=== PATIENT | female | born 1990 | race African-American/Black ===

== ENCOUNTER 2017-01-17 17:50 | Emergency (ER) | payer SELFPAY ==
[~2017-01-17] VITALS: Ht 165.1 cm; Wt 130.6 kg
[~2017-01-17 17:50] MED LIST: BENZ200C47 PO; ONDA4TAB10 SL
[2017-01-17 18:13] VITALS: BP 128/58
--- NOTE | 2017-01-17 18:58 | PHYS DOC ---
Past Medical History Past Medical History: Bronchitis, Depression, Other Additional Past Medical Histor: miscarriage jul 2014 Past Surgical History: Tonsillectomy Alcohol Use: Occasionally Drug Use: None Adult General Chief Complaint Chief Complaint: COUGH HPI HPI 26-year-old female presenting to the emergency department for cough and congestion and runny nose at home for the last week or 2. Location upper respiratory tract. Duration intermittent. She has been using the over-the- counter medications with minimal relief. Review of systems is negative for chest pain abdominal pain she denies confusion neck stiffness or meningismus. All other review of systems is negative unless otherwise noted in history of present illness. ED course: 26-year-old female presenting with cough and congestion over the past few days. I ordered a chest x-ray a urine test and ordered a nebulizer for the patient to help her with her cough. Unfortunately, for some unknown reason the patient became very angry and left. We would be happy to see her again if she were to come back. We could continue taking care of her. I think she is doing all right things by taking soho-bbv-wwzqsww medications for cough control at home. I would've liked to have gotten a chest x-ray to evaluate her for pneumonia however because the patient left I can no longer get a chest x-ray. The patient then eloped. She eloped prior to my ability to have a final discussion with the patient about return precautions. Review of Systems Review of Systems SEE ABOVE. Allergies Allergies Allergies Coded Allergies Type Severity Reaction Last Updated Verified No Known Drug Allergies 11/11/14 No Physical Exam Physical Exam Constitutional: Well developed, well nourished, no acute distress, non-toxic appearance. [] HENT: Normocephalic, atraumatic, bilateral external ears normal, oropharynx moist, no oral exudates, nose normal. [] Eyes: PERRLA, EOMI, conjunctiva normal, no discharge. [] Neck: Normal range of motion, no tenderness, supple, no stridor. [] Cardiovascular:Heart rate regular rhythm, no murmur [] Lungs & Thorax: Bilateral breath sounds clear to auscultation [] clear to auscultation bilaterally. Abdomen: Bowel sounds normal, soft, no tenderness, no masses, no pulsatile masses. [] Skin: Warm, dry, no erythema, no rash. [] Back: No tenderness, no CVA tenderness. [] Extremities: No tenderness, no cyanosis, no clubbing, ROM intact, no edema. [] Neurologic: Alert and oriented X 3, normal motor function, normal sensory function, no focal deficits noted. [] Psychologic: Affect normal, judgement normal, mood normal. [] Current Patient Data Vital Signs Vital Signs Date Time Temp Pulse Resp B/P (MAP) Pulse Ox O2 Delivery O2 Flow Rate FiO2 01/17/17 18:13 98.1 62 20 98 Room Air 98.1 EKG EKG [] Radiology/Procedures Radiology/Procedures [] Course & Med Decision Making Course & Med Decision Making Pertinent Labs and Imaging studies reviewed. (See chart for details) [] Dragon Disclaimer Dragon Disclaimer This electronic medical record was generated, in whole or in part, using a voice recognition dictation system. Departure Departure Impression: Primary Impression: Cough Additional Impressions: At high risk for elopement History of attempted elopement from health care facility Referrals: NO PCP (PCP) Problem Qualifiers ARCADIO PUENTE MD Jan 17, 2017 18:58
[2017-01-17] MEDS ORDERED: IPRATRPIUM/ALBUTEROL 0.5/2.5MG 3 ML NEBU. NEB ONE (19:00)
== END 2017-01-17 18:54 | disposition left against medical advice (07) ==
LOC: ER 17:50
DX: R05 Cough (principal); R09.81 Nasal congestion; R09.89 Other specified symptoms and signs involving the circulatory and respiratory systems; F32.9 Major depressive disorder, single episode, unspecified; Z53.21 Procedure and treatment not carried out due to patient leaving prior to being seen by health care provider
CPT/HCPCS: 81025; 99281; 99282

== ENCOUNTER 2018-05-23 12:25 | Emergency (ER) | payer SELFPAY ==
[~2018-05-23] VITALS: Ht 165.1 cm; Wt 108.9 kg
[2018-05-23 12:50] VITALS: BP 140/87
--- NOTE | 2018-05-23 13:53 | PHYS DOC ---
Past Medical History Past Medical History: Anxiety, Bipolar, Bronchitis, Depression, Other Additional Past Medical Histor: miscarriage jul 2014, PANIC DISORDER Past Surgical History: Tonsillectomy Alcohol Use: Occasionally Drug Use: None Adult General Chief Complaint Chief Complaint: HEADACHE HPI HPI 27-year-old female presents to ER with complaints of ongoing headache for the past week. Patient reports she experienced an anxiety attack approximately one week ago and the headache developed after that. Patient reports she has also had sinus pressure and photosensitivity. Patient reports she took Tylenol at 8 AM this morning and current pain is at 5-6/10. She reports she has been taking sinus congestion medication [id number] but came to the ER as she was wanting her pain to be "gone". Patient states she has felt warm but has not checked her temperature at home. Patient denies vision change. Patient denies urinary symptoms. Patient reports she has had regular appetite. Patient states her LMP was months ago but she has irregular menstrual cycles. Patient reports no concerns for as she has not been sexually active in the past 2 years. Patient denies any suicidal ideations and reports her anxiety has improved since one week ago. Review of Systems Review of Systems Constitutional: Reports feeling "warm" denies checking temperature. Reports regular appetite Eyes: Denies change in visual acuity, redness, or drainage. Reports photosensitivity and eye pressure HENT: Denies sore throat. Reports sinus congestion with sinus pressure Respiratory: Denies cough or shortness of breath [] Cardiovascular: Denies CP/palpitations GI: Denies abdominal pain, nausea, vomiting, bloody stools or diarrhea [] : Denies dysuria or hematuria [] Musculoskeletal: Denies back/neck pain or joint pain [] Integument: Denies rash or skin lesions [] Neurologic: Denies focal weakness or sensory changes Psych: reports anxiety attack 1 wk ago- reports anxiety improved denies SI[] All other systems were reviewed and found to be within normal limits, except as documented in this note. Allergies Allergies Allergies Coded Allergies Type Severity Reaction Last Updated Verified No Known Drug Allergies 11/11/14 No Physical Exam Physical Exam Constitutional: Well developed, well nourished, no acute distress, non-toxic appearance. Clear speech HENT: Normocephalic, atraumatic, lt ear with mild erythema- TM not bulging/ perforated- clear fluid behind TM and NL external canal. Rt ear NL exam, no pharyngeal/tonsillar erythema/swelling, no oral exudates, nose exam NL. [] Eyes: 3mm PERRLA, EOMI, no nystagmus, conjunctiva normal, no discharge. [] Neck: Normal range of motion, no tenderness, supple, no gross adenopathy Cardiovascular:Heart rate regular rhythm, no murmur [] Lungs & Thorax: Bilateral breath sounds clear to auscultation. Resp. equal/ nonlabored Abdomen: Bowel sounds normal, soft/obese, no tenderness, no masses, no pulsatile masses. [] Skin: Warm, dry, no erythema, no rash. [] Back: No tenderness, no CVA tenderness. [] Extremities: No tenderness, no cyanosis, no clubbing, ROM intact, no edema. [] Neurologic: Alert and oriented X 3, normal motor function, normal sensory function, no focal deficits noted. [] Psychologic: Affect normal, judgement normal, mood normal. [] Current Patient Data Vital Signs Vital Signs Date Time Temp Pulse Resp B/P (MAP) Pulse Ox O2 Delivery O2 Flow Rate FiO2 05/23/18 12:50 98.1 64 20 140/87 (104) 100 Room Air 98.1 Lab Values Laboratory Tests Test 05/23/18 13:19 POC Urine HCG, Qualitative Borderline hcg level EKG EKG [] Radiology/Procedures Radiology/Procedures [] Course & Med Decision Making Course & Med Decision Making During initial exam discussed IV fluids and medications for headache treatment along with UCG as patient's menstrual cycle is irregular. Pt after tx plan was offered stated she didn't want IV or medications offered as she could obtain ibuprofen/benedryl over the counter. Patient stated she didn't want any type of treatment or her bill to be run up with treatment as offered. Patient states she drove herself to the ER so didn't want Benadryl as she didn't have a ride home. Other options for treatment offered so she would be able to drive home and patient again preferred no treatment while in the ER and requested home discharge. Patient reported she has scheduled appointment with primary care physician on Wednesday encourage patient to keep that appointment for reevaluation and further care. Increase fluid intake and eat well-balanced meal. Patient advised on qpfj-enm-ojepmaf medication tylenol and/or ibuprofen, afrin, antihistamines- all as directed on container if needed. Patient has been nontoxic in appearance during exam and in no visible distress as discussion was had with her. Education provided on signs and symptoms to return to ER for an discharge instructions were discussed Staff Physician Addendum: I was working in the ER during the course of this patient's visit. I was available for consultation as needed, but I was not directly involved in the care of this patient. . Dragon Disclaimer Dragon Disclaimer This electronic medical record was generated, in whole or in part, using a voice recognition dictation system. Departure Departure Impression: Primary Impression: Head ache Additional Impression: Sinus congestion Disposition: HOME, SELF-CARE Condition: STABLE Referrals: NO PCP (PCP) Patient Instructions: General Headache Without Cause, Sinus Headache, Easy-to- Read Additional Instructions: You preferred no treatment while in the Emergency Department. As discussed you can use galx-kye-rhbbxib Tylenol and/or ibuprofen as directed on container. Drink plenty of fluids and eat a well-balanced meal. You can do Afrin over-the- counter as directed on container for sinus congestion avoid using for more than 3 consecutive days. You said you have a scheduled appointment on Wednesday with your primary doctor keep that appointment for reevaluation- call for sooner appointment if symptoms worsen or with concerns. You can try a over the counter antihistamines for headache/sinuses- such as benedryl/pepcid as directed on container. Problem Qualifiers CHIARA RODRIGUEZ APRN May 23, 2018 13:53 MALIA RIVERO MD May 23, 2018 17:36
== END 2018-05-23 14:23 | disposition home or self-care (01) ==
LOC: ER 12:25
DX: R51 Headache (principal); R09.81 Nasal congestion; F41.9 Anxiety disorder, unspecified; F31.9 Bipolar disorder, unspecified; Z90.89 Acquired absence of other organs
CPT/HCPCS: 81025; 99281; 99283

== ENCOUNTER 2019-05-06 09:49 | Emergency (ER) | payer SELFPAY ==
[~2019-05-06] VITALS: Ht 165.1 cm; Wt 132.9 kg
[2019-05-06 09:50] VITALS: BP 153/83
[2019-05-06] MEDS ORDERED: NAPR500T8 PO (10:06)
[2019-05-06] MEDS ORDERED: PENI500T PO (10:06)
[2019-05-06] MEDS ORDERED: HYDR-3164 PO (10:06)
--- NOTE | 2019-05-06 10:06 | PHYS DOC ---
Past Medical History Past Medical History: Anxiety, Bipolar, Bronchitis, Depression, Other Additional Past Medical Histor: miscarriage jul 2014, PANIC DISORDER (HOLA MARTIN APRN) Past Surgical History: Tonsillectomy (HOLA MARTIN APRN) Alcohol Use: Occasionally Drug Use: None (HOLA MARTIN APRN) Attending Signature I have participated in the care of this patient and I have reviewed and agree with all pertinent clinical information above including history, exam, and recommendations. (JOE MEZA MD) Adult General Chief Complaint Chief Complaint: DENTAL PROBLEM HPI HPI Patient is a 28 year old female who presents with dental pain for one day. Rates the pain at 7.5/10 describes the pain as throbbing, pain for one day. Denies any fever or trismus. (HOLA MARTIN APRN) Review of Systems Review of Systems Constitutional: Denies fever or chills [] HENT: Reports dental pain. Denies nasal congestion or sore throat [] Musculoskeletal: Denies back pain or joint pain [] Integument: Denies rash or skin lesions [] Neurologic: Denies headache, focal weakness or sensory changes [] All other systems were reviewed and found to be within normal limits, except as documented in this note. (HOLA MARTIN APRN) Allergies Allergies Allergies Coded Allergies Type Severity Reaction Last Updated Verified No Known Drug Allergies 11/11/14 No (JOE MEZA MD) Physical Exam Physical Exam Constitutional: Well developed, well nourished, no acute distress, non-toxic appearance. [] HENT: Normocephalic, atraumatic, bilateral external ears normal, oropharynx moist, no oral exudates, nose normal. [] right upper gum wisdom tooth is broken. No gum erythema, no abscess noted Skin: Warm, dry, no erythema, no rash. [] Back: No tenderness, no CVA tenderness. [] Extremities: No tenderness, no cyanosis, no clubbing, ROM intact, no edema. [] Neurologic: Alert and oriented X 3, normal motor function, normal sensory function, no focal deficits noted. [] Psychologic: Affect normal, judgement normal, mood normal. [] (HOLA MARTIN APRN) Current Patient Data Vital Signs Vital Signs Date Time Temp Pulse Resp B/P (MAP) Pulse Ox O2 Delivery O2 Flow Rate FiO2 05/06/19 09:50 98.3 70 18 153/83 (106) 96 Room Air 98.3 (JOE MEZA MD) EKG EKG [] (HOLA MARTIN APRN) Radiology/Procedures Radiology/Procedures [] (HOLA MARTIN APRN) Course & Med Decision Making Course & Med Decision Making Pertinent Labs and Imaging studies reviewed. (See chart for details) Patient has dental pain with a broken right upper gum wisdom tooth. D/c with PCN. f/u with dentist next week (HOLA MARTIN APRN) Dragon Disclaimer Dragon Disclaimer This electronic medical record was generated, in whole or in part, using a voice recognition dictation system. (HOLA MARTIN APRN) Departure Departure Impression: Primary Impression: Dentalgia Disposition: 01 HOME, SELF-CARE Condition: STABLE Referrals: NO PCP (PCP) follow up with a dentist next week Patient Instructions: Dental Pain, [id number] Additional Instructions: Please complete your antibiotics and follow up with a dentist next week Scripts Hydrocodone/Apap 5-325 (NORCO 5-325 TABLET) 1 Each Tablet 1 TAB PO Q6HRS, #20 TAB Prov: HOLA MARTIN APRN 05/06/19 Naproxen (NAPROXEN) 500 Mg Tablet.dr 1 TAB PO BID, #20 TAB 0 Refills Prov: HOLA MARTIN APRN 05/06/19 Penicillin V Potassium (PENICILLIN V POTASSIUM) 500 Mg Tablet 1 TAB PO BID, #14 TAB Prov: HOLA MARTIN APRN 05/06/19 HOLA MARTIN APRN May 06, 2019 10:06 JOE MEZA MD May 07, 2019 06:07
== END 2019-05-06 10:08 | disposition home or self-care (01) ==
LOC: ER 09:49
DX: K08.89 Other specified disorders of teeth and supporting structures (principal); F41.9 Anxiety disorder, unspecified; F31.9 Bipolar disorder, unspecified; Z90.89 Acquired absence of other organs
CPT/HCPCS: 99283

== ENCOUNTER 2019-12-06 12:14 | Emergency (ER) | payer MEDICARE ==
[~2019-12-06] VITALS: Ht 165.1 cm; Wt 118.1 kg
[~2019-12-06 12:14] MED LIST changes: +HYDR-3164 PO; +NAPR500T8 PO; +PENI500T PO
[2019-12-06 12:35] LABS: BILIRUBIN,URINE NEGATIVE (NEG); CLARITY,URINE HAZY; COLOR,URINE STRAW
[2019-12-06 12:36] LABS: BACTERIA,URINE 0 /HPF (0-FEW); NITRITE,URINE NEGATIVE (NEG); PH,URINE 7.5 (<5.0-8.0); PROTEIN,URINE TRACE mg/dL (NEG-TRACE); SQUAMOUS EPITHELIAL CELL,UR MOD /LPF; UROBILINOGEN,URINE 0.2 mg/dL (0.2 mg/dL); WBC,URINE 0 /HPF (0-4)
--- NOTE | 2019-12-06 12:42 | PHYS DOC ---
Past Medical History Past Medical History: Anxiety, Bipolar, Bronchitis, Depression, Other Additional Past Medical Histor: miscarriage jul 2014, PANIC DISORDER Past Surgical History: Tonsillectomy Smoking Status: Never Smoker Alcohol Use: None Drug Use: None General Adult EDM: Chief Complaint: VAGINAL BLEEDING HPI: HPI: Patient is a 28 year old female who presents with low abdominal cramping at a 3/10. 2 weeks has had vaginal bleeding only going through 3-4 tampons a day. This morning when she awoke and got in shower she has 2 large clots come out. She states there is a possibility that she could be . She has a history of PCOS and her periods are irregular. Denies any need for STD testing. Patient has no provider relations advocate. She did have a miscarriage in 2014. Review of Systems: Review of Systems: GI: low abdominal pain, denies nausea, vomiting, bloody stools or diarrhea. [] : Denies dysuria. Vaginal Breathing. [] Heart Score: Risk Factors: Risk Factors: DM, Current or recent (<one month) smoker, HTN, HLP, family history of CAD, obesity. Risk Scores: Score 0 - 3: 2.5% MACE over next 6 weeks - Discharge Home Score 4 - 6: 20.3% MACE over next 6 weeks - Admit for Clinical Observation Score 7 - 10: 72.7% MACE over next 6 weeks - Early Invasive Strategies Allergies: Allergies: Allergies Coded Allergies Type Severity Reaction Last Updated Verified No Known Drug Allergies 11/11/14 No Physical Exam: PE: Constitutional: Well developed, well nourished, no acute distress, non-toxic appearance. [] HENT: Normocephalic, atraumatic, bilateral external ears normal, oropharynx moist, no oral exudates, nose normal. [] Eyes: PERRLA, EOMI, conjunctiva normal, no discharge. [] Neck: Normal range of motion, no tenderness, supple, no stridor. [] Cardiovascular:Heart rate regular rhythm, no murmur [] Lungs & Thorax: Bilateral breath sounds clear to auscultation [] Abdomen: Bowel sounds normal, soft, no tenderness, no masses, no pulsatile masses. [] Skin: Warm, dry, no erythema, no rash. [] Back: No tenderness, no CVA tenderness. [] Extremities: No tenderness, no cyanosis, no clubbing, ROM intact, no edema. [] Neurologic: Alert and oriented X 3, normal motor function, normal sensory function, no focal deficits noted. [] Psychologic: Affect normal, judgement normal, mood normal. Normal Physical Exam[] Current Patient Data: Labs: Laboratory Tests Test 12/06/19 12:25 POC Urine HCG, Qualitative Hcg negative (Negative) EKG: EKG: [] Radiology/Procedures: Radiology/Procedures: [] Impression: [facility] [address] [place] [address] IMAGING REPORT Signed PATIENT: COLIN DYSON ACCOUNT: [id number] : 1990 LOCATION: ER AGE: 28 SEX: F EXAM STATUS: REG ER ORD. PHYSICIAN: LOUIE ALVARADO APRN REASON: pelvic pain, vaginal bleeding PROCEDURE: PELVIS W/TV PELVIS W/TV History: Pelvic pain. Vaginal bleeding. Comparison: None. Technique: Grayscale and color Doppler imaging of the pelvis was performed using transabdominal and transvaginal technique. Findings: The uterus measures 7.1 x 2.9 x 4.4 cm in length. Uterus has an unremarkable appearance. The endometrial stripe measures 9.9 mm. Right ovary measures 3.8 x 2.2 x 3.0 cm. Left ovary measures 4.1 x 2.6 x 2.7 cm. Normal Doppler flow to the ovaries. No adnexal masses are seen. IMPRESSION: 1. Unremarkable pelvic ultrasound. Electronically signed by: Wilmer Maciel DO (12/06/2019 1:41 PM) [id number] DICTATED and SIGNED BY: WILMER MACIEL DO DATE: 12/06/19 1341 Course & Med Decision Making: Course & Med Decision Making Pertinent Labs and Imaging studies reviewed. (See chart for details) Alert and oriented. Speaks in full clear sentences. Anxious. Skin pink warm and dry. Abdomen is soft and nontender. UCG negative. Denies nausea, vomiting, constipation, diarrhea, chest pain, soa, headache, dizziness, loc, numbness or tingling, foacal weakness, fever, dyuria, back pain. [] Dragon Disclaimer: Dragon Disclaimer: This electronic medical record was generated, in whole or in part, using a voice recognition dictation system. Departure Departure Impression: Primary Impression: Vaginal bleeding Disposition: HOME, SELF-CARE Condition: STABLE Referrals: NO PCP (PCP) CRISTINA COFFMAN Jr, MD Patient Instructions: Dysmenorrhea, [id number] Additional Instructions: Follow up with Gynecology if needed. Take Tylenol or Ibuprofen for pain. You begin going through more than 1 tampon or pad an hour return to the emergency room. LOUIE ALVARADO PERSONAL INJURY [employer] SPECIALIST December 06, 2019 12:42
[2019-12-06 12:57] LABS: BASO % 1 % (0-3); EOS # 0.2 x10^3/uL (0.0-0.7); EOS % 3 % (0-3); HEMATOCRIT 41.6 % (36.0-47.0); HEMOGLOBIN 14.1 g/dL (12.0-15.5); LYMPH # 3.1 x10^3/uL (1.0-4.8); LYMPH % 45 % (24-48); MEAN CORPUSCULAR HEMOGLOBIN 30 pg (25-35); MEAN CORPUSCULAR HGB CONC 34 g/dL (31-37); MEAN CORPUSCULAR VOLUME 88 fL (79-100); MONO # 0.4 x10^3/uL (0.0-1.1); MONO % 6 % (0-9); NEUT # 3.1 x10^3/uL (1.8-7.7); NEUT % 45 % (31-73); PLATELET COUNT 203 x10^3/uL (140-400); RED BLOOD COUNT 4.71 x10^6/uL (3.50-5.40); RED CELL DISTRIBUTION WIDTH 13.2 % (11.5-14.5); WHITE BLOOD COUNT 6.9 x10^3/uL (4.0-11.0)
[2019-12-06 13:02] LABS: CALCIUM 8.7 mg/dL (8.5-10.1); GFR 79.9; POTASSIUM 3.9 mmol/L (3.5-5.1)
[2019-12-06 13:06] LABS: PROTHROMBIN TIME PATIENT 12.8 SEC (11.7-14.0)
[2019-12-06 13:08] LABS: ALBUMIN 3.4 g/dL (3.4-5.0); ALBUMIN/GLOBULIN RATIO 0.9 (1.0-1.7); TOTAL BILIRUBIN 0.6 mg/dL (0.2-1.0)
[2019-12-06 13:25] VITALS: BP 132/75
--- NOTE | 2019-12-06 13:43 | RAD ---
PELVIS W/TV History: Pelvic pain. Vaginal bleeding. Comparison: None. Technique: Grayscale and color Doppler imaging of the pelvis was performed using transabdominal and transvaginal technique. Findings: The uterus measures 7.1 x 2.9 x 4.4 cm in length. Uterus has an unremarkable appearance. The endometrial stripe measures 9.9 mm. Right ovary measures 3.8 x 2.2 x 3.0 cm. Left ovary measures 4.1 x 2.6 x 2.7 cm. Normal Doppler flow to the ovaries. No adnexal masses are seen. IMPRESSION: 1. Unremarkable pelvic ultrasound. Electronically signed by: Wilmer Maciel DO (12/06/2019 1:41 PM) [id number]
== END 2019-12-06 13:57 | disposition home or self-care (01) ==
LOC: ER 12:14
DX: N93.9 Abnormal uterine and vaginal bleeding, unspecified (principal); R10.30 Lower abdominal pain, unspecified; F41.9 Anxiety disorder, unspecified; F32.9 Major depressive disorder, single episode, unspecified; Z90.89 Acquired absence of other organs; Z98.890 Other specified postprocedural states
CPT/HCPCS: 36415; 76830; 76856; 80053; 81001; 81025; 85025; 85610; 99284

== ENCOUNTER 2020-03-02 08:41 | Emergency (ER) | payer MEDICARE ==
[~2020-03-02] VITALS: Ht 165.1 cm; Wt 113.0 kg
[2020-03-02 09:15] VITALS: BP 160/73
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
[2020-03-02] MEDS ORDERED: IBUP-1007 PO (10:35)
[2020-03-02] MEDS ORDERED: HYDR-3164 PO (10:35)
== END 2020-03-02 10:58 | disposition home or self-care (01) ==
LOC: ER 08:41
DX: S83.8X2A Sprain of other specified parts of left knee, initial encounter (principal); R60.0 Localized edema; F41.9 Anxiety disorder, unspecified; F32.9 Major depressive disorder, single episode, unspecified; J42 Unspecified chronic bronchitis; Z90.89 Acquired absence of other organs; Z98.890 Other specified postprocedural states; V98.8XXA Other specified transport accidents, initial encounter; Y93.89 Activity, other specified; Y92.413 State road as the place of occurrence of the external cause; Y99.8 Other external cause status
CPT/HCPCS: 29505; 73562; 99283